=== PATIENT | male | born 1945 | race Caucasian/White ===

== ENCOUNTER → 2020-07-16 15:52 | Outpatient (BNVA) | payer MEDICARE, SELFPAY | PROVIDERS: PCP Family Medicine; Visit Provider Family Medicine | DX: I73.9 Peripheral vascular disease, unspecified (principal); Z51.81 Encounter for therapeutic drug level monitoring; Z79.01 Long term (current) use of anticoagulants | CPT/HCPCS: 85610; 99211 ==

== ENCOUNTER → 2020-07-23 15:21 | Outpatient (BNVA) | payer MEDICARE, SELFPAY | PROVIDERS: PCP Family Medicine; Visit Provider Internal Medicine | DX: I73.9 Peripheral vascular disease, unspecified (principal); Z51.81 Encounter for therapeutic drug level monitoring; Z79.01 Long term (current) use of anticoagulants | CPT/HCPCS: 85610 ==

== ENCOUNTER → 2020-09-17 15:40 | Outpatient (BNVA) | payer MEDICARE, SELFPAY | PROVIDERS: PCP Family Medicine; Visit Provider Internal Medicine | DX: I73.9 Peripheral vascular disease, unspecified (principal); Z51.81 Encounter for therapeutic drug level monitoring; Z79.01 Long term (current) use of anticoagulants | CPT/HCPCS: 85610; 99211 ==

== ENCOUNTER → 2020-09-24 15:30 | Outpatient (BNVA) | payer MEDICARE, SELFPAY | PROVIDERS: PCP Family Medicine; Visit Provider Internal Medicine | DX: I73.9 Peripheral vascular disease, unspecified (principal); Z51.81 Encounter for therapeutic drug level monitoring; Z79.01 Long term (current) use of anticoagulants | CPT/HCPCS: 85610; 99211 ==

== ENCOUNTER → 2020-09-27 14:37 | Outpatient (BNVA) | payer MEDICARE, SELFPAY | PROVIDERS: PCP Family Medicine; Visit Provider Internal Medicine | DX: I73.9 Peripheral vascular disease, unspecified (principal); Z51.81 Encounter for therapeutic drug level monitoring; Z79.01 Long term (current) use of anticoagulants | CPT/HCPCS: 85610; 99211 ==

== ENCOUNTER → 2020-09-30 14:13 | Outpatient (BNVA) | payer MEDICARE, SELFPAY | PROVIDERS: PCP Family Medicine; Visit Provider Internal Medicine | DX: I73.9 Peripheral vascular disease, unspecified (principal); Z79.01 Long term (current) use of anticoagulants; Z51.81 Encounter for therapeutic drug level monitoring | CPT/HCPCS: 85610; 99211 ==

== ENCOUNTER → 2020-10-05 14:17 | Outpatient (BNVA) | payer MEDICARE, SELFPAY | PROVIDERS: PCP Family Medicine; Visit Provider Internal Medicine | DX: I73.9 Peripheral vascular disease, unspecified (principal); Z51.81 Encounter for therapeutic drug level monitoring; Z79.01 Long term (current) use of anticoagulants | CPT/HCPCS: 85610; 99211 ==

== ENCOUNTER → 2020-10-14 14:41 | Outpatient (BNVA) | payer MEDICARE, SELFPAY | PROVIDERS: PCP Family Medicine; Visit Provider Internal Medicine | DX: I73.9 Peripheral vascular disease, unspecified (principal); Z79.01 Long term (current) use of anticoagulants; Z51.81 Encounter for therapeutic drug level monitoring | CPT/HCPCS: 85610; 99211 ==

== ENCOUNTER 2020-11-02 10:19 | Outpatient (REF) | payer MEDICARE, SELFPAY ==
[2020-11-02 11:40] LABS: Glucose Urine UA 250 MG/DL (NEG); Leukocyte Esterase Urine NEG (NEG); Nitrite Urine NEG (NEG); Specific Gravity - Urine 1.015 (1.005-1.025); Urine Blood NEG (NEG); Urine Ketones NEG (NEG); Urine Protein 1+ MG/DL (NEG-TRACE)
[2020-11-02 11:55] LABS: Appearance Urine HAZY; Color Urine YELLOW
[2020-11-02 12:35] LABS: Mucus Urine 1+ /LPF; Renal Epithelial Cells Urine 1+ /LPF; Squamous Epithelial Cell Urine 1+ /LPF
== END 2020-11-02 10:20 | disposition home or self-care (01) ==
LOC: HO.LNP 10:19
PROVIDERS: Visit Provider Family Medicine
DX: E11.65 Type 2 diabetes mellitus with hyperglycemia (principal)
CPT/HCPCS: 81001

== ENCOUNTER → 2020-11-05 14:21 | Outpatient (BNVA) | payer MEDICARE, SELFPAY | PROVIDERS: PCP Family Medicine; Visit Provider Internal Medicine | DX: I73.9 Peripheral vascular disease, unspecified (principal); Z51.81 Encounter for therapeutic drug level monitoring; Z79.01 Long term (current) use of anticoagulants | CPT/HCPCS: 85610; 99211 ==

== ENCOUNTER → 2020-11-26 13:44 | Outpatient (BNVA) | payer MEDICARE, SELFPAY | PROVIDERS: PCP Family Medicine; Visit Provider Internal Medicine | DX: I73.9 Peripheral vascular disease, unspecified (principal); Z51.81 Encounter for therapeutic drug level monitoring; Z79.01 Long term (current) use of anticoagulants | CPT/HCPCS: 85610; 99211 ==

== ENCOUNTER 2020-12-09 13:42 | Emergency (ER) | payer MEDICARE, SELFPAY ==
[2020-12-09] VITALS (15 sets, daily range): BP systolic 115–167; BP diastolic 17–72; PULSE 83–94; RESP 16–24; TEMP 36.5–37.1; O2SAT 97–98; BMI 28.1
--- NOTE | 2020-12-09 13:57 | ECG_ITS ---
Test Reason : WEAKNESS Blood Pressure : / mmHG Vent. Rate : 077 BPM Atrial Rate : 267 BPM P-R Int : 000 ms QRS Dur : 092 ms QT Int : 438 ms P-R-T Axes : 000 030 219 degrees QTc Int : [address] & T wave abnormality, consider inferolateral ischemia Prolonged QT Abnormal ECG When compared with ECG of 22-AUG-2011 09:07, Significant changes have occurred Referred By: Gloria Degroot Electronically Signed By:RAJAN NORTON
--- NOTE | 2020-12-09 13:58 | ED.GIBLEED ---
HPI - GI Bleed General Chief complaint: Weakness Stated complaint: hemoglobin blood level 6.2, Time Seen by Provider: 12/09/20 13:55 Source: patient and family (daughter is electrical technician and interpreted for us) Mode of arrival: ambulatory Limitations: no limitations History of Present Illness HPI Narrative: 75 yo male with renal disease on peritoneal disease at home, GIB ?AVM, s/p synthetic fem pop bypass on coumadin, had H/H checked yesterday it is around 6 - dropped from usual 10, c/o feeling fatigued and some ACOSTA recently, no black or bloody stools reported at home MD complaint: other (low H/H) Onset (ago): day(s) (1) Pain Consistency: constant Severity: moderate Relieving factors: movement Exacerbating factors: none Context: history of GI bleed and anticoagulant use Associated symptoms: weakness Treatments Prior to Arrival: none Related Data Home Medications Medication Instructions Recorded Confirmed atorvastatin 40 mg tablet 40 mg PO BEDTIME 09/24/20 12/09/20 blood sugar diagnostic #10 ea 09/24/20 10/05/20 carvedilol 3.125 mg tablet 3.125 mg PO BID 09/24/20 12/09/20 docusate sodium 100 mg capsule 100 mg PO BID PRN 09/24/20 12/09/20 ergocalciferol (vitamin D2) 1,250 1,250 mcg PO YOUNG@1000 09/24/20 12/09/20 mcg (50,000 unit) capsule fluticasone propionate 50 1 spray INTRANASAL DAILY PRN 09/24/20 12/09/20 mcg/actuation nasal spray,suspension glucagon 3 mg/actuation nasal spray 3 mg INTRANASAL DAILY PRN 09/24/20 12/09/20 hydralazine 50 mg tablet 50 mg PO BID 09/24/20 12/09/20 insulin aspart U-100 100 unit/mL 4 - 6 unit SUBCUT DAILY 09/24/20 12/09/20 (3 mL) subcutaneous pen insulin glargine 100 unit/mL (3 13 unit SUBCUT DAILY 09/24/20 12/09/20 mL) subcutaneous pen levothyroxine 75 mcg tablet 75 mcg PO DAILY 09/24/20 12/09/20 losartan 100 mg tablet 100 mg PO DAILY 09/24/20 12/09/20 magnesium oxide 400 mg (241.3 mg 400 mg PO TID 09/24/20 12/09/20 magnesium) tablet melatonin 1 mg tablet 1 mg PO BEDTIME 09/24/20 12/09/20 omeprazole 20 mg capsule,delayed 20 mg PO DAILY 09/24/20 12/09/20 release pen needle, diabetic 32 gauge x #50 ea 09/24/20 10/05/20 5/32 potassium chloride 10 mEq 10 meq PO DAILY 09/24/20 12/09/20 capsule,extended release ketoconazole 2 % shampoo 1 appl TOPICAL 2XW PRN 10/05/20 12/09/20 vitamin B complex-vitamin C-folic 1 tab PO DAILY 10/05/20 12/09/20 acid 0.8 mg tablet B complex-vitamin C-folic acid 1 tab PO DAILY 12/09/20 12/09/20 [Dialyvite 800] amlodipine 10 mg PO DAILY 12/09/20 12/09/20 ferric citrate [Auryxia] 210 mg PO DAILY 12/09/20 12/09/20 ketorolac 1 drp OPHTHALMIC (EYE) TID 12/09/20 12/09/20 prednisolone acetate 1 drp OPHTHALMIC-LEFT QID 12/09/20 12/09/20 warfarin 3 mg PO TUFR@1800 12/09/20 12/09/20 warfarin 4.5 mg PO SUMOWETHSA@1800 12/09/20 12/09/20 Allergies Allergy/AdvReac Type Severity Reaction Status Date / Time oxycodone [OXYCODONE] Allergy Intermediate RASH Verified 11/26/20 14:13 ITCHYNESS, itchy HIVES Review of Systems Review of Systems: Constitutional : No Weight loss, No Fever, No Chills ENT/Mouth : No sore throat, No Rhinorrhea Eyes: No Swelling, No Redness Cardiovascular : No Chest Pain, pos SOB, NoEdema Respiratory : No Cough, No Sputum, No Wheezing Gastrointestinal : no Nausea, no Vomiting, no Diarrhea, no abdominal Pain, No Hematochezia, No Melena Genitourinary : No Dysuria, No Urinary Frequency, No Hematuria, No Urgency Musculoskeletal : No joint pain, No Myalgias, No Joint Swelling Skin : No Skin Lesions, No rash Neuro : pos Weakness, No Numbness, No Dizziness, No Headache Psych : No Anxiety/Panic, No Depression Heme/Lymph: No Bruising, No Lymphadenopathy Endocrine : No Polyuria, No Polydipsia All other systems reviewed and are negative. [facility] Past Medical History Attestation statement: The following information was validated with the patient. Source: old records reviewed and obtained from family Medical History (Updated 12/09/20 @ 14:41 by Gloria Degroot DO) Anemia CHF (congestive heart failure) Diabetes GIB (gastrointestinal bleeding) Hernia Peritoneal dialysis catheter in place Renal failure Surgical History (Updated 12/09/20 @ 14:12 by Gloria Degroot DO) S/P femoral-popliteal bypass surgery Social History Social History (Updated 12/09/20 @ 14:13 by Gloria Degroot DO) Smoking Status: Former smoker Advance Directives: No Advance Directives Information Provided: No Physical Exam Vital Signs: Vital Signs: Last Vital Signs Temp 97.7 F 12/09/20 16:32 Pulse 85 12/09/20 16:32 Resp 18 12/09/20 16:32 BP 120/66 12/09/20 16:32 Pulse Ox 98 12/09/20 13:50 Body Mass Index 28.1 Appearance: Alert. Oriented X3. No acute distress. Eyes: Pupils equal, round and reactive to light. ENT: Pharynx normal. Neck: Normal inspection. Neck supple. CVS: Normal heart rate and rhythm. Pulses normal. Respiratory: No respiratory distress. Breath sounds normal. Abdomen: Soft and nontender. cath site is c/d/i Rectal: black stool noted smells of melena Skin: Skin warm and dry. pale skin color. Normal skin turgor. Extremities: No lower extremity edema. No calf ttp Neuro: Oriented X 3. No motor deficit. No sensory deficit. Course Course Course Narrative: no hx of afib per daughter patient and daughter agree to stay initially hesitant due to COVID but patient just received his second vaccine 2UPRBCs ordered call to nephrology to figure out peritoneal dialysis as well as call to [facility] if patient can stay here FFP and Vit K ordered as well INR 3.5 but daughter notes that this is for fem pop bypass to prevent occlusion - has afib now but no history at this time. nephrology Dr. Duran and both hospital administration recommend transfer to [facility] as we do not have the equipment for peritoneal dialysis, will call [facility] now 411pm discussed with GI fellow at [facility] - agrees transfer is appropriate pending hospitalist call back. signed out to Dr. Mac pending hospitalist call back 5pm MDM - GI Bleed MDM Narrative Medical decision making narrative: 75 yo male with renal disease on peritoneal dialysis, GIB, on coumadin post synthetic fem pop bypass here with increasing fatigue and ACOSTA no reported bloody or black stools at home but stool black on exam today told his hemoglobin was 6 yesterday given his presentation labs, transfusion ordered, IV protonix, plan to admit patient and daughter have mentioned going home after blood but he is high risk given his coumadin use. Lab Data Result diagrams: 12/09/20 14:53 12/09/20 14:53 Labs: Lab Results 12/09/20 12/09/20 12/09/20 Range/Units 14:08 14:53 14:53 WBC 7.0 (4.8-10.8) X10*3/uL RBC 1.68 L (4.60-5.80) X10*6/uL Hgb 5.3 L* (14.0-18.0) g/dl Hct 17.1 L* (42-52) % MCV 101.8 H (80-98) fL MCH 31.5 (27.0-33.0) pg MCHC 31.0 (31.0-36.0) g/dl RDW 15.7 (11.0-16.0) % Plt Count 154 L (160-400) X10*3/uL MPV 10.8 (9.4-12.4) fL Immature Gran % (Auto) 0.4 (0.0-0.4) % Neut % (Auto) 70.8 (45-73) % Lymph % (Auto) 17.9 L (20-40) % Tompkins % (Auto) 8.5 (2-11) % Eos % (Auto) 2.0 (0-4) % Baso % (Auto) 0.4 (0-2) % Lymph # (Auto) 1.3 (1.2-4.9) X10*3/uL Tompkins # (Auto) 0.6 (0.1-1.2) X10*3/uL Eos # (Auto) 0.1 (0.0-0.4) X10*3/uL Baso # (Auto) 0.0 (0.0-0.2) X10*3/uL Abs Immat Gran (auto) 0.03 (0.00-0.03) X10*3/uL Absolute Neuts (auto) 4.9 (2.0-8.3) X10*3/uL Absolute Nucleated RBC 0.000 (0.0-0.012) X10*3/uL Nucleated RBC % (auto) 0.0 (0.0-0.2) /100WBC PT (10.8-13.0) SEC INR (0.9-1.1) APTT (24.1-38.0) SEC Sodium 133 L (135-145) mmol/L Potassium 3.7 (3.3-5.1) mmol/L Chloride 96 (96-108) mmol/L Carbon Dioxide 24 (22-29) mmol/L Anion Gap 17 (12-20) BUN 72 H (9-16) mg/dL Creatinine 9.14 H* (0.5-1.4) mg/dL Estim Creat Clear Calc 7.2 Estimated GFR 6 Random Glucose 189 H (60-115) mg/dL Lactic Acid (0.5-2.0) mmol/L Calcium 8.0 L (8.4-10.2) mg/dL Magnesium 2.4 (1.6-2.6) mg/dL Total Bilirubin 0.7 (0.0-1.0) mg/dL Direct Bilirubin 0.2 (0.0-0.5) mg/dL AST 20 (5-37) U/L ALT 23 (0-40) U/L Alkaline Phosphatase 59 (39-117) U/L Troponin I High Sens (<3.5-35.0) ng/L Total Protein 4.9 L (6.5-8.0) g/dL Albumin 3.0 L (3.5-5.0) g/dL Lipase (8-78) U/L Stool Occult Blood POS (NEG) COVID-19 ([facility]) (Negative) COVID-19 Clin Com Blood Type Antibody Screen Crossmatch 12/09/20 12/09/20 12/09/20 Range/Units 14:53 14:53 14:53 WBC (4.8-10.8) X10*3/uL RBC (4.60-5.80) X10*6/uL Hgb (14.0-18.0) g/dl Hct (42-52) % MCV (80-98) fL MCH (27.0-33.0) pg MCHC (31.0-36.0) g/dl RDW (11.0-16.0) % Plt Count (160-400) X10*3/uL MPV (9.4-12.4) fL Immature Gran % (Auto) (0.0-0.4) % Neut % (Auto) (45-73) % Lymph % (Auto) (20-40) % Tompkins % (Auto) (2-11) % Eos % (Auto) (0-4) % Baso % (Auto) (0-2) % Lymph # (Auto) (1.2-4.9) X10*3/uL Tompkins # (Auto) (0.1-1.2) X10*3/uL Eos # (Auto) (0.0-0.4) X10*3/uL Baso # (Auto) (0.0-0.2) X10*3/uL Abs Immat Gran (auto) (0.00-0.03) X10*3/uL Absolute Neuts (auto) (2.0-8.3) X10*3/uL Absolute Nucleated RBC (0.0-0.012) X10*3/uL Nucleated RBC % (auto) (0.0-0.2) /100WBC PT 41.7 H (10.8-13.0) SEC INR 3.5 H (0.9-1.1) APTT 47.0 H (24.1-38.0) SEC Sodium (135-145) mmol/L Potassium (3.3-5.1) mmol/L Chloride (96-108) mmol/L Carbon Dioxide (22-29) mmol/L Anion Gap (12-20) BUN (9-16) mg/dL Creatinine (0.5-1.4) mg/dL Estim Creat Clear Calc Estimated GFR Random Glucose (60-115) mg/dL Lactic Acid 1.9 (0.5-2.0) mmol/L Calcium (8.4-10.2) mg/dL Magnesium (1.6-2.6) mg/dL Total Bilirubin (0.0-1.0) mg/dL Direct Bilirubin (0.0-0.5) mg/dL AST (5-37) U/L ALT (0-40) U/L Alkaline Phosphatase (39-117) U/L Troponin I High Sens 43.1 H (<3.5-35.0) ng/L Total Protein (6.5-8.0) g/dL Albumin (3.5-5.0) g/dL Lipase (8-78) U/L Stool Occult Blood (NEG) COVID-19 ([facility]) (Negative) COVID-19 Clin Com Blood Type Antibody Screen Crossmatch 12/09/20 12/09/20 12/09/20 Range/Units 14:53 14:53 14:53 WBC (4.8-10.8) X10*3/uL RBC (4.60-5.80) X10*6/uL Hgb (14.0-18.0) g/dl Hct (42-52) % MCV (80-98) fL MCH (27.0-33.0) pg MCHC (31.0-36.0) g/dl RDW (11.0-16.0) % Plt Count (160-400) X10*3/uL MPV (9.4-12.4) fL Immature Gran % (Auto) (0.0-0.4) % Neut % (Auto) (45-73) % Lymph % (Auto) (20-40) % Tompkins % (Auto) (2-11) % Eos % (Auto) (0-4) % Baso % (Auto) (0-2) % Lymph # (Auto) (1.2-4.9) X10*3/uL Tompkins # (Auto) (0.1-1.2) X10*3/uL Eos # (Auto) (0.0-0.4) X10*3/uL Baso # (Auto) (0.0-0.2) X10*3/uL Abs Immat Gran (auto) (0.00-0.03) X10*3/uL Absolute Neuts (auto) (2.0-8.3) X10*3/uL Absolute Nucleated RBC (0.0-0.012) X10*3/uL Nucleated RBC % (auto) (0.0-0.2) /100WBC PT (10.8-13.0) SEC INR (0.9-1.1) APTT (24.1-38.0) SEC Sodium (135-145) mmol/L Potassium (3.3-5.1) mmol/L Chloride (96-108) mmol/L Carbon Dioxide (22-29) mmol/L Anion Gap (12-20) BUN (9-16) mg/dL Creatinine (0.5-1.4) mg/dL Estim Creat Clear Calc Estimated GFR Random Glucose (60-115) mg/dL Lactic Acid (0.5-2.0) mmol/L Calcium (8.4-10.2) mg/dL Magnesium (1.6-2.6) mg/dL Total Bilirubin (0.0-1.0) mg/dL Direct Bilirubin (0.0-0.5) mg/dL AST (5-37) U/L ALT (0-40) U/L Alkaline Phosphatase (39-117) U/L Troponin I High Sens (<3.5-35.0) ng/L Total Protein (6.5-8.0) g/dL Albumin (3.5-5.0) g/dL Lipase 72 (8-78) U/L Stool Occult Blood (NEG) COVID-19 ([facility]) Negative (Negative) COVID-19 Clin Com See Note Blood Type AB Positive Antibody Screen NEGATIVE Crossmatch See Detail ECG Data Attestation: I personally reviewed and interpreted this ECG as follows: ECG interpretation date: 12/09/20 ECG interpretation time: 14:30 Interpretation: Rate: 80 Rhythm: afib [place]: normal Normal QRS complex. ST T wave : ST depression V3-V6 slight, no JACKIE, inverted inf leads qTC: normal prior studies: changed from 2011 The study has been interpreted contemporaneously by me. . Critical Care Time Critical Care Time Critical Care Time: Yes Total Critical Care Time: 60 Attestation: medical consults, transfusions, transfer to tertiary center I attest to this time spent taking care of the patient Discharge Plan Discharge Clinical Impression: Current use of anticoagulant therapy Anemia Qualifiers: Anemia type: other cause Other causes of anemia: acute posthemorrhagic Qualified Code(s): D62 - Acute posthemorrhagic anemia GIB (gastrointestinal bleeding) Qualifiers: GI bleed type/associated pathology: melena Qualified Code(s): K92.1 - Melena A-fib Qualifiers: Atrial fibrillation type: unspecified Qualified Code(s): I48.91 - Unspecified atrial fibrillation Patient Disposition: [facility] Transfer Details: [facility] Prescriptions: No Action ketorolac 0.5 % Drops 1 drp OPHTHALMIC (EYE) TID RF: 0 prednisolone acetate 1 % Drops,Suspension 1 drp ophthalmic-Left QID RF: 0 amlodipine 10 mg Tablet 10 mg PO DAILY RF: 0 Dialyvite 800 800 mcg Tablet,Chewable 1 tab PO DAILY RF: 0 Auryxia 210 mg iron Tablet 210 mg PO DAILY RF: 0 warfarin 3 mg Tablet 4.5 mg PO SUMOWETHSA@1800 RF: 0 warfarin 3 mg tablet 3 mg PO TUFR@1800 RF: 0 Baqsimi 3 mg/actuation spray,non-aerosol 3 mg intranasal DAILY PRN (Reason: Hypoglycemia) RF: 0 melatonin 1 mg tablet 1 mg PO BEDTIME RF: 0 levothyroxine 75 mcg tablet 75 mcg PO DAILY RF: 0 ergocalciferol (vitamin D2) 1,250 mcg (50,000 unit) capsule 1,250 mcg PO YOUNG@1000 RF: 0 hydralazine 50 mg tablet 50 mg PO BID RF: 0 magnesium oxide 400 mg (241.3 mg magnesium) tablet 400 mg PO TID RF: 0 (DME) pen needle, diabetic 32 gauge x 5/32 needle See Rx Instructions ea subcut .MEDSUPPLY Qty: 50 RF: 0 Lantus Solostar U-100 Insulin 100 unit/mL (3 mL) insulin pen 13 unit subcut DAILY RF: 0 insulin aspart U-100 100 unit/mL (3 mL) insulin pen 4 - 6 unit subcut DAILY RF: 0 fluticasone propionate 50 mcg/actuation spray,suspension 1 spray intranasal DAILY PRN (Reason: Allergy Symptoms) RF: 0 losartan 100 mg tablet 100 mg PO DAILY RF: 0 carvedilol 3.125 mg tablet 3.125 mg PO BID RF: 0 docusate sodium 100 mg capsule 100 mg PO BID PRN (Reason: Constipation) RF: 0 omeprazole 20 mg capsule,delayed release(DR/EC) 20 mg PO DAILY RF: 0 (DME) FreeStyle Lite Strips Strip See Rx Instructions ea Not Applicable .MEDSUPPLY Qty: 10 RF: 0 potassium chloride 10 mEq capsule, extended release 10 meq PO DAILY RF: 0 atorvastatin 40 mg tablet 40 mg PO BEDTIME RF: 0 Dialyvite 800 0.8 mg tablet 1 tab PO DAILY RF: 0 ketoconazole 2 % shampoo 1 appl topical 2XW PRN (Reason: Itching) RF: 0
[2020-12-09 14:12] LABS: OBS Int Ctl Valid YES; OBS1 POS (NEG)
[2020-12-09 15:00] LABS: MANUAL DIFF FLAG NO
--- NOTE | 2020-12-09 15:02 | PC.NURSE ---
IV EST 20 G L AC.
[2020-12-09] MEDS: Pantoprazole Sodium 40 MG/10 ML VIAL IVPUSH (15:04)
[2020-12-09 15:08] LABS: Basophils Percent Auto 0.4 % (0-2); Eosinophils Absolute Auto 0.1 X10*3/uL (0.0-0.4); Imm Gran Abs Auto 0.03 X10*3/uL (0.00-0.03); Imm Gran Pct Auto 0.4 % (0.0-0.4); Lymphocytes Absolute Auto 1.3 X10*3/uL (1.2-4.9); Lymphocytes Percent Auto 17.9 % (20-40); Mean Corpuscular Hemoglobin 31.5 pg (27.0-33.0); Mean Corpuscular Volume 101.8 fL (80-98); Mean Platelet Volume 10.8 fL (9.4-12.4); Monocytes Absolute Auto 0.6 X10*3/uL (0.1-1.2); Monocytes Percent Auto 8.5 % (2-11); Neutrophils Absolute Auto 4.9 X10*3/uL (2.0-8.3); Neutrophils Percent Auto 70.8 % (45-73); Platelet Count 154 X10*3/uL (160-400); Red Blood Count 1.68 X10*6/uL (4.60-5.80); Red Cell Distribution Width 15.7 % (11.0-16.0)
[2020-12-09 15:10] LABS: INTERNATIONAL NORM RATIO 3.5 (0.9-1.1); Prothrombin Time 41.7 SEC (10.8-13.0)
[2020-12-09 15:13] LABS: Hemoglobin 5.3 g/dl (14.0-18.0)
[2020-12-09 15:14] LABS: Hematocrit 17.1 % (42-52)
[2020-12-09] MEDS: Pantoprazole Sodium 80 MG in 0.9 % Sodium Chloride 80 ML 10 MG IV (15:15)
[2020-12-09 15:21] LABS: COVID-19 Test Negative (Negative)
[2020-12-09 15:29] LABS: Lactic Acid 1.9 mmol/L (0.5-2.0)
[2020-12-09 15:33] LABS: Lipase 72 U/L (8-78)
[2020-12-09 15:36] LABS: Alanine Aminotransferase 23 U/L (0-40); Alkaline Phosphatase 59 U/L (39-117); Anion Gap 17 (12-20); Aspartate Amino Transferase 20 U/L (5-37); Bilirubin Direct 0.2 mg/dL (0.0-0.5); Bilirubin Total 0.7 mg/dL (0.0-1.0); Blood Urea Nitrogen 72 mg/dL (9-16); Carbon Dioxide 24 mmol/L (22-29); Chloride 96 mmol/L (96-108); Creatinine Clr Calc Pharmacy 7.2; Estimated Glomerular Filt Rate 6; Glucose Random 189 mg/dL (60-115); Magnesium 2.4 mg/dL (1.6-2.6); Potassium 3.7 mmol/L (3.3-5.1); Sodium 133 mmol/L (135-145); Total Protein 4.9 g/dL (6.5-8.0)
[2020-12-09 15:43] LABS: Troponin-I High Sensitivity 43.1 ng/L (<3.5-35.0)
--- NOTE | 2020-12-09 16:40 | PC.NURSE ---
PT TOLERATING BLOOD TRANSFUSION WELL. ATTEMPTING SECOND PERIPHERAL IV. PT DIFFICULT STICK. LS CLEAR. BPS REAMIN WNL. DENIES ANY PAIN AT THIS TIME.
[2020-12-09] MEDS: Phytonadione (Vit K1) 10 MG in 0.9 % Sodium Chloride 50 ML 51 MG IV (17:39)
--- NOTE | 2020-12-09 17:39 | PC.NURSE ---
REGULATORY CONSULTANT RIN IN TO PLACE EJ ALL ATTEMPTS TO PLACE IV FAILED BY NUMEROUS RNS
--- NOTE | 2020-12-09 18:17 | PC.NURSE ---
2ND UNIT OF RBCS HUNG. AWAITING TRANSPORT TO [facility]
--- NOTE | 2020-12-09 18:21 | PC.NURSE ---
PROTONIX HELD AT 1630 FOR RBC INFUSION. VIT K NOW HANGING. PROTONIX TO CONTINUE AFTER VIT K INFUSION
--- NOTE | 2020-12-09 20:05 | PC.NURSE ---
protonix gtt resumed
--- NOTE | 2020-12-09 20:40 | PC.NURSE ---
Patient transfered to [facility] via [facility]. Report given by MELBA Hernandez.
--- NOTE | 2020-12-09 21:54 | PC.NURSE ---
REPORT GIVEN TO [facility] RN
== END 2020-12-09 20:45 | disposition short-term general hospital (02) ==
PROVIDERS: Emergency Provider Emergency Medicine; PCP Family Medicine
DX: R53.1 Weakness (principal); D62 Acute posthemorrhagic anemia; K92.1 Melena; I48.91 Unspecified atrial fibrillation; Z20.822 Contact with and (suspected) exposure to COVID-19; E11.22 Type 2 diabetes mellitus with diabetic chronic kidney disease; I13.2 Hypertensive heart and chronic kidney disease with heart failure and with stage 5 chronic kidney disease, or end stage renal disease; I50.9 Heart failure, unspecified; N18.6 End stage renal disease; Z99.2 Dependence on renal dialysis; Z79.4 Long term (current) use of insulin; Z95.828 Presence of other vascular implants and grafts; Z79.01 Long term (current) use of anticoagulants
CPT/HCPCS: 36415; 36430; 80048; 80076; 82272; 83605; 83690; 83735; 84484; 85025; 85060; 85610; 85730; 86850; 86900; 86920; 86923; 86927; 87635; 93005; 96365; 96366; 96368; 96375; 99285; 99291; J3430; P9016; P9017

== ENCOUNTER 2021-02-01 11:28 | Outpatient (REF) | payer MEDICARE, SELFPAY ==
[2021-02-02 13:21] LABS: Transglutaminase Ab IgG 1 U/mL; Transglutaminase IgA 1 U/mL
[2021-02-04 18:47] LABS: Histamine Plasma <1.5 ng/mL (< OR = 1.8)
== END 2021-02-01 11:29 | disposition home or self-care (01) ==
LOC: HO.LAB 11:28
PROVIDERS: PCP Family Medicine; Visit Provider Internal Medicine Gastroenterology
DX: R10.33 Periumbilical pain (principal); K92.2 Gastrointestinal hemorrhage, unspecified; R19.7 Diarrhea, unspecified; G89.29 Other chronic pain
CPT/HCPCS: 36415; 83088; 83516; 84443; 99212

== ENCOUNTER 2021-02-05 07:21 | Outpatient (REF) | payer MEDICARE, SELFPAY ==
[2021-02-09 06:12] LABS: Fecal Fat Qualitative Abnormal (Normal)
[2021-02-14 23:42] LABS: Pancreatic Elastase-1 434 mcg/g
== END 2021-02-05 07:22 | disposition home or self-care (01) ==
LOC: HO.LNP 07:21
PROVIDERS: Visit Provider Internal Medicine Gastroenterology
DX: K92.2 Gastrointestinal hemorrhage, unspecified (principal); R19.7 Diarrhea, unspecified
CPT/HCPCS: 82656; 82705; 87045; 87046; 87324; 87329; 87449

== ENCOUNTER 2021-03-16 14:37 | Outpatient (REF) | payer MEDICARE, SELFPAY ==
--- NOTE | ~2021-03-16 | XR_ITS ---
EXAMINATION: XR ABDOMEN KUB CLINICAL INDICATION: Gastrointestinal hemorrhage. COMPARISON: None TECHNIQUE: AP views of the abdomen. FINDINGS: Nonobstructive bowel gas pattern. Dftn-aq-swzchorj stool throughout the colon. Drain coiled overlying the left pelvis. Atherosclerotic calcifications. No acute osseous abnormality. XR/XR KUB IMPRESSION: Nonobstructive bowel gas pattern. Msby-oq-gbvatvax stool throughout the colon. Drain coiled overlying the left pelvis.
== END 2021-03-16 14:38 | disposition home or self-care (01) ==
LOC: HO.XRAY 14:37
PROVIDERS: PCP Family Medicine; Visit Provider Internal Medicine Gastroenterology
DX: K92.2 Gastrointestinal hemorrhage, unspecified (principal); R19.7 Diarrhea, unspecified
CPT/HCPCS: 74018

== ENCOUNTER → 2021-03-24 08:40 | Outpatient (BNVA) | payer MEDICARE, SELFPAY | PROVIDERS: PCP Family Medicine; Referring Provider Family Medicine; Visit Provider Internal Medicine Gastroenterology | DX: K29.80 Duodenitis without bleeding (principal) | CPT/HCPCS: 91110 ==

== ENCOUNTER 2021-03-28 15:44 | Outpatient (REF) | payer MEDICARE, SELFPAY | END 2021-03-28 15:45 | disposition home or self-care (01) | LOC: HO.LNP 15:44 | PROVIDERS: PCP Family Medicine; Referring Provider Family Medicine; Visit Provider Surgery | DX: L72.9 Follicular cyst of the skin and subcutaneous tissue, unspecified (principal) | CPT/HCPCS: 11422; 88304; 99202 ==

== ENCOUNTER 2021-03-29 08:13 | Outpatient (REF) | payer MEDICARE, SELFPAY | END 2021-03-29 08:14 | disposition home or self-care (01) | LOC: HO.LAB 08:13 | PROVIDERS: Visit Provider Surgery | DX: Z13.89 Encounter for screening for other disorder (principal) ==

== ENCOUNTER → 2021-04-01 13:39 | Outpatient (BNVA) | payer MEDICARE, SELFPAY | PROVIDERS: PCP Family Medicine | DX: Z48.00 Encounter for change or removal of nonsurgical wound dressing (principal) | CPT/HCPCS: 99211 ==

== ENCOUNTER → 2021-04-07 16:08 | Outpatient (BNVA) | payer MEDICARE, SELFPAY | PROVIDERS: PCP Family Medicine; Referring Provider Family Medicine; Visit Provider Surgery | DX: Z48.817 Encounter for surgical aftercare following surgery on the skin and subcutaneous tissue (principal); Z87.2 Personal history of diseases of the skin and subcutaneous tissue | CPT/HCPCS: 99212 ==

== ENCOUNTER 2021-04-08 14:59 | Outpatient (REF) | payer MEDICARE, SELFPAY ==
--- NOTE | 2021-04-13 08:14 | MHC.AU.HFU ---
Hearing Instrument Follow-Up- Binaural Date of Visit: 04/08/21 Right Ear: Semiconductor Wafers Marker: Phonak Model: Audeo M50-R Serial Number: [id number] Repair Warranty: 04/16/2022 Loss and Damage Warranty: 04/16/2022 Battery Size: Rechargeable Color: Sand Beige Type of Dome: Medium Open Dome Type of Wax Guard: CeruShield Dispensed By: [facility] Date of Fittin02/27/2019 Left Ear: Semiconductor Wafers Marker: Phonak Model: Audeo M50-R Serial Number: [id number] Repair Warranty: 04/16/2022 Loss and Damage Warranty: 04/26/2022 Battery Size: Rechargeable Color: Sand Beige Type of Dome: Medium Power Dome Type of Wax Guard: CeruStop Dispensed By: [facility] Date of Fittin02/27/2019 Follow-Up Summary: Patient arrived as a walk-in, reporting both instruments were not working. Both receivers were blocked with cerumen. Cleaned receivers, replaced domes and wax guards. Vacuumed microphones. Hearing aids are amplifying clearly after maintenance. Recommendations: Hearing instrument follow-up or maintenance as needed. Please contact our clinic with any questions or concerns. Diagnosis Code(s): Primary Diagnosis: H90.3 Bilateral Sensorineural Hearing Loss Signature: Provider: Anjali Neil, [facility]
== END 2021-04-08 15:00 | disposition home or self-care (01) ==
LOC: HO.HAP 14:59
PROVIDERS: Visit Provider Family Medicine
DX: Z46.1 Encounter for fitting and adjustment of hearing aid (principal); H90.3 Sensorineural hearing loss, bilateral
CPT/HCPCS: 92593

== ENCOUNTER 2021-07-15 13:00 | Outpatient (REF) | payer MEDICARE, SELFPAY | END 2021-07-15 13:01 | disposition home or self-care (01) | LOC: HO.MDS 13:00 | PROVIDERS: Visit Provider Internal Medicine Nephrology | DX: D64.9 Anemia, unspecified (principal) | CPT/HCPCS: 36430; 86850; 86900; 86901; 86923; P9016 ==

== ENCOUNTER → 2021-09-15 10:06 | Outpatient (BNVA) | payer MEDICARE, SELFPAY | PROVIDERS: PCP Family Medicine; Visit Provider Surgery Vascular Surgery | DX: E11.621 Type 2 diabetes mellitus with foot ulcer (principal); L97.519 Non-pressure chronic ulcer of other part of right foot with unspecified severity; E11.51 Type 2 diabetes mellitus with diabetic peripheral angiopathy without gangrene; Z89.421 Acquired absence of other right toe(s) | CPT/HCPCS: 99202 ==

== ENCOUNTER 2021-09-21 12:45 | Outpatient (RCR) | payer MEDICARE, SELFPAY ==
--- NOTE | ~2021-09-21 | XR_ITS ---
EXAMINATION: XR FOOT, RIGHT CLINICAL INFORMATION: Nonhealing wound COMPARISON: None TECHNIQUE: AP, lateral, and oblique views of the right foot. FINDINGS: Postsurgical changes of amputation at the level of the distal fourth and fifth metatarsal shaft. Lucency projected over the soft tissues distal to this, may reflect skin ulceration. There is mild cortical irregularity of the amputation margin of the fifth metatarsal. Subtle irregularity of the fourth metatarsal amputation margin on one of the views. Osteomyelitis cannot be excluded. Amputation of the second metatarsal at the level of the distal shaft without evidence of definite osteomyelitis involving the additional margin. No additional areas of definite osteomyelitis identified. Bones are osteopenic. Mild first MTP arthritis. Vascular calcification is noted. XR/XR foot RT 2V IMPRESSION: Amputation at the level of the distal fifth metatarsal shaft, with osseous findings of the amputation margin raising the possibility of osteomyelitis. Further evaluation with MRI without and with contrast as clinically warranted. Question soft tissue ulceration in the distal lateral soft tissues. Clinically correlate. Fourth metatarsal amputation at the level of the distal shaft. Equivocal subtle cortical irregularity of the amputation margin. The report will be called to the ordering clinician by a [place] [facility] Physician Bioinformatics Programmer.
== END 2021-10-04 11:00 | disposition home or self-care (01) ==
LOC: HO.WCC 12:45
PROVIDERS: Visit Provider Surgery
DX: E10.621 Type 1 diabetes mellitus with foot ulcer (principal); E10.51 Type 1 diabetes mellitus with diabetic peripheral angiopathy without gangrene; L97.512 Non-pressure chronic ulcer of other part of right foot with fat layer exposed; T87.89 Other complications of amputation stump; E10.22 Type 1 diabetes mellitus with diabetic chronic kidney disease; I12.0 Hypertensive chronic kidney disease with stage 5 chronic kidney disease or end stage renal disease; N18.6 End stage renal disease; Z79.4 Long term (current) use of insulin; Z89.421 Acquired absence of other right toe(s); Z79.01 Long term (current) use of anticoagulants; Z87.891 Personal history of nicotine dependence; Z99.2 Dependence on renal dialysis
CPT/HCPCS: 11042; 73620

== ENCOUNTER → 2021-11-07 13:01 | Outpatient (BNVA) | payer MEDICARE, SELFPAY | PROVIDERS: PCP Family Medicine; Visit Provider Internal Medicine Gastroenterology | DX: R19.7 Diarrhea, unspecified (principal) | CPT/HCPCS: Q3014 ==

== ENCOUNTER 2022-10-03 17:41 | Emergency (ER) | payer MEDICARE, SELFPAY ==
[2022-10-03 17:53] VITALS: BP 106/43; PULSE 86; RESP 18; TEMP 36.9; O2SAT 99; BMI 25.1
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
[2022-10-03] MEDS: Bacitracin Oint 14 GM TUBE 1 APPL TOPICAL (18:20)
--- NOTE | 2022-10-03 18:26 | PC.NURSE ---
abrasions on left knee cleansed with NS, patted dry, followed by bacitracin, non stick dressing kerlix and tape
== END 2022-10-03 18:57 | disposition home or self-care (01) ==
PROVIDERS: Emergency Provider Internal Medicine; PCP Family Medicine
DX: L03.115 Cellulitis of right lower limb (principal); Z79.899 Other long term (current) drug therapy
CPT/HCPCS: 99282; 99283

== ENCOUNTER 2022-11-30 12:41 | Emergency (ER) | payer MEDICARE, SELFPAY ==
--- NOTE | 2022-11-30 12:50 | ECG_ITS ---
Test Reason : DIZZY Blood Pressure : / mmHG Vent. Rate : 074 BPM Atrial Rate : 000 BPM P-R Int : 000 ms QRS Dur : 154 ms QT Int : 448 ms P-R-T Axes : 000 -42 165 degrees QTc Int : 497 ms Atrial fibrillation Left axis deviation Non-specific intra-ventricular conduction block Abnormal ECG When compared with ECG of 09-DEC-2020 14:24, QRS duration wider Referred By: Generic ED Physician Electronically Signed By:RAJAN NORTON
--- NOTE | 2022-11-30 13:24 | ED_ITS ---
HPI - Dizziness General Chief Complaint: General Medical <Edwina Pérez CNP - Last Filed: 11/30/22 13:38> Stated Complaint: dizzy <Edwina Pérez CNP - Last Filed: 11/30/22 13:38> Time Seen by Provider: 11/30/22 14:04 <Edwina Pérez CNP - Last Filed: 11/30/22 13:38> Source: patient, family (daughter) and head of digital (daughter interpreting khmer) <SHAN Mccoy - Last Filed: 12/01/22 13:27> Mode of arrival: ambulatory <SHAN Mccoy - Last Filed: 12/01/22 13:27> Limitations: language barrier <SHAN Mccoy Last Filed: 12/01/22 13:27> History of Present Illness HPI Narrative: Patient is a 77 year old assigned male at with a history of kidney failure, eliquis use, and GI bleeding presenting to the emergency department today with dizziness and weakness. Patient's daughter states that the patient d oes nightly peritoneal dialysis. Patient's daughter states that the patient had a large, black, bowel movement 3 days ago and they attempted to hold his eliquis for 1 day but he continues to feel dizzy. Patient's daughter states that the last time this happened, the patient requires a blood transfusion. Patient denies any lightheadedness, abdominal pain, nausea, vomiting, fever, chills, blurry vision, double vision, loss of vision, chest pain, difficulty breathing, shortness of breath, back pain, night sweats, pain with urination, increased urinary frequency, increased urinary urgency, syncope or a near syncopal episode, recent trauma or falls, bowel incontinence, bladder incontinence, bowel retention, bladder retention, or any other complaints at this time. <SHAN Mccoy - Last Filed: 12/01/22 13:27> MD elicited complaint: dizziness and lightheadedness <SHAN Mccoy - Last Filed: 12/01/22 13:27> Pertinent past history: GI bleed <SHAN Mccoy Last Filed: 12/01/22 13:27> Onset (ago): day(s) <SHAN Mccoy Last Filed: 12/01/22 13:27> Severity: mild <SHAN Mccoy - Last Filed: 12/01/22 13:27> Description: lightheadedness <SHAN Mccoy - Last Filed: 12/01/22 13:27> History of similar symptoms: Yes <SHAN Mccoy - Last Filed: 12/01/22 13:27> Exacerbating factors: nothing <SHAN Mccoy - Last Filed: 12/01/22 13:27> Relieving factors: nothing <SHAN Mccoy - Last Filed: 12/01/22 13:27> Associated symptoms: denies other symptoms <SHAN Mccoy - Last Filed: 12/01/22 13:27> Related Data Home Medications: Home Medications Medication Instructions Recorded Confirmed atorvastatin 40 mg tablet 40 mg PO BEDTIME 09/24/20 04/01/21 blood sugar diagnostic #10 ea 09/24/20 04/01/21 carvedilol 3.125 mg tablet 3.125 mg PO BID 09/24/20 04/01/21 docusate sodium 100 mg capsule 100 mg PO BID PRN Constipation 09/24/20 04/01/21 ergocalciferol (vitamin D2) 1,250 1,250 mcg PO YOUNG@1000 09/24/20 04/01/21 mcg (50,000 unit) capsule fluticasone propionate 50 1 spray intranasal DAILY PRN 09/24/20 04/01/21 mcg/actuation nasal Allergy Symptoms spray,suspension glucagon 3 mg/actuation nasal spray 3 mg intranasal DAILY PRN 09/24/20 04/01/21 Hypoglycemia hydralazine 50 mg tablet 50 mg PO BID 09/24/20 04/01/21 insulin aspart U-100 100 unit/mL 4 - 6 unit subcut DAILY 09/24/20 04/01/21 (3 mL) subcutaneous pen insulin glargine 100 unit/mL (3 13 unit subcut DAILY 09/24/20 04/01/21 mL) subcutaneous pen levothyroxine 75 mcg tablet 75 mcg PO DAILY 09/24/20 04/01/21 losartan 100 mg tablet 100 mg PO DAILY 09/24/20 04/01/21 magnesium oxide 400 mg (241.3 mg 400 mg PO TID 09/24/20 04/01/21 magnesium) tablet melatonin 1 mg tablet 1 mg PO BEDTIME 09/24/20 04/01/21 omeprazole 20 mg capsule,delayed 20 mg PO DAILY 09/24/20 04/01/21 release pen needle, diabetic 32 gauge x #50 ea 09/24/20 04/01/21 potassium chloride 10 mEq 10 meq PO DAILY 09/24/20 04/01/21 capsule,extended release ketoconazole 2 % shampoo 1 appl topical 2XW PRN Itching 10/05/20 04/01/21 vitamin B complex-vitamin C-folic 1 tab PO DAILY 10/05/20 04/01/21 acid 0.8 mg tablet ketorolac 0.5 % eye drops 1 drp ophthalmic (eye) TID 12/09/20 04/01/21 prednisolone acetate 1 % eye 1 drp ophthalmic-Left QID 12/09/20 04/01/21 drops,suspension vitamin B complex-vitamin C-folic 1 tab PO DAILY 12/09/20 04/01/21 acid 800 mcg chewable tablet (Dialyvite 800) warfarin 3 mg tablet 3 mg PO TUFR@1800 12/09/20 04/01/21 apixaban 2.5 mg tablet 2.5 mg PO BID 02/01/21 04/01/21 pantoprazole 40 mg tablet,delayed 40 mg PO DAILY 02/01/21 04/01/21 release epoetin beta, methoxy peg 30 30 mcg subcut Q2W 03/28/21 04/01/21 mcg/0.3 mL injection syringe (Mircera) amlodipine 10 mg tablet 5 mg PO DAILY 09/15/21 ferric citrate 210 mg iron tablet 210 mg PO DAILY 09/15/21 (Auryxia) Previous Rx's Medication Instructions Recorded bisacodyl 5 mg tablet,delayed 10 mg PO ONCE Bowel Preparation 1 03/02/21 release (Dulcolax (bisacodyl)) day #2 tabs polyethylene glycol 3350 17 238 g PO ONCE 1 day #238 grams 03/02/21 gram/dose oral powder (Miralax) colesevelam 3.75 gram oral powder 3.75 g PO DAILY 3 months #90 06/15/21 packet packets cephalexin 500 mg capsule 500 mg PO BID 7 days #14 caps 10/03/22 <Edwina Pérez, [facility] - Last Filed: 11/30/22 13:38> Allergies/Adverse Reactions: Allergies Allergy/AdvReac Type Severity Reaction Status Date / Time oxycodone [OXYCODONE] Allergy Intermediate RASH Verified 09/15/21 10:25 ITCHYNESS, itchy HIVES <Edwina Barlowdee Pérez [employer] [employer] [facility] - Last Filed: 11/30/22 13:38> Review of Systems Constitutional: Constitutional: Reports no additional constitutional complaints, Denies chills, Denies fever(s) and Denies night sweats <SHAN Mccoy - Last Filed: 12/01/22 13:27> Eyes: Eyes: Reports no additional eye complaints, Denies blurry vision, Denies change in vision, Denies diplopia, Denies eye discharge, Denies loss of vision and Denies eye pain <SHAN Mccoy - Last Filed: 12/01/22 13:27> ENT: Reports dizziness <SHAN Mccoy - Last Filed: 12/01/22 13:27> Cardiovascular: Cardiovascular: Reports no additional cardiovascular complaint s, Denies chest pain, Denies lightheadedness, Denies Loss of Consciousness and Denies dyspnea <SHAN Mccoy - Last Filed: 12/01/22 13:27> Respiratory: Respiratory: Reports no additional respiratory complaints and Denies dyspnea <SHAN Mccoy - Last Filed: 12/01/22 13:27> Gastrointestinal: Gastrointestinal: Reports no additional gastrointestinal complaints, Denies abdominal pain, Denies melena, Denies hematochezia, Denies change in bowel habits and Denies change in stool character <SHAN Mccoy - Last Filed: 12/01/22 13:27> Genitourinary: Genitourinary: Reports no additional male genitourinary complaints, Denies hematuria, Denies oliguria, Denies difficulty urinating, Denies dysuria, Denies urinary frequency, Denies urinary hesitancy, Denies urinary incontinence and Denies urinary urgency <SHAN Mccoy - Last Filed: 12/01/22 13:27> Musculoskeletal: Musculoskeletal: Reports no additional musculoskeletal complaints, Denies numbness and Denies tingling <SHAN Mccoy - Last Filed: 12/01/22 13:27> Neurologic: Reports dizziness, Denies loss of vision, Denies numbness and Denies tingling <SHAN Mccoy - Last Filed: 12/01/22 13:27> Psychiatric: Psychiatric: Reports no additional psychiatric complaints <SHAN Mccoy - Last Filed: 12/01/22 13:27> Endocrine: Endocrine: Reports no additional endocrine complaints <SHAN Mccoy - Last Filed: 12/01/22 13:27> Hematologic/Lymphatic: Hematologic/Lymphatic: Reports no additional hematologic/lymphatic complaints <SHAN Mccoy - Last Filed: 12/01/22 13:27> Allergic/Immunologic: Allergic/Immunologic: Reports no additional allergic/immunologic complaints <SHAN Mccoy - Last Filed: 12/01/22 13:27> [facility] Past Medical History Attestation statement: The following information was validated with the patient. (all information validated with the patient's daughter) <SHAN Mccoy - Last Filed: 12/01/22 13:27> Source: old records reviewed, obtained from family (patient's daughter) and nursing notes reviewed <SHAN Mccoy - Last Filed: 12/01/22 13:27> Medical History: Medical History Anemia CHF (congestive heart failure) Diabetes GIB (gastrointestinal bleeding) Hernia Peritoneal dialysis catheter in place Renal failure Scalp cyst <Edwina Pérez CNP - Last Filed: 11/30/22 13:38> Surgical History: Surgical History H/O esophagogastroduodenoscopy History of excision of mass S/P femoral-popliteal bypass surgery <Edwina Pérez CNP - Last Filed: 11/30/22 13:38> Family History Family History: Family History Mother Diabetes Father Diabetes <Edwina Pérez CNP - Last Filed: 11/30/22 13:38> Social History Social History: Social History Household Members: None Alcohol intake: current Alcohol intake frequency: does not drink Smoked in Last 30 Days: No Advance Directives: No Advance Directives Information Provided: No <Edwina Ruiz VELIA Pérez - Last Filed: 11/30/22 13:38> Physical Exam Vital Signs: Vital Signs: Last Vital Signs Temp 97.6 F 11/30/22 16:31 Pulse 78 11/30/22 18:15 Resp 12 11/30/22 18:15 BP 139/59 L 11/30/22 18:15 Pulse Ox 99 11/30/22 18:15 O2 Del Method 11/30/22 18:15 BMI result Body Mass Index 27.1 <Edwina EagleVELIA stoner - Last Filed: 11/30/22 13:38> Vital Signs: Last Vital Signs Temp 97.6 F 11/30/22 16:31 Pulse 78 11/30/22 18:15 Resp 12 11/30/22 18:15 BP 139/59 L 11/30/22 18:15 Pulse Ox 99 11/30/22 18:15 O2 Del Method 11/30/22 18:15 BMI result Body Mass Index 27.1 <SHAN Mccoy - Last Filed: 12/01/22 13:27> Const: General: cooperative, no acute distress, alert and awake <SHAN Mccoy - Last Filed: 12/01/22 13:27> Nutritional Appearance: well nourished <SHAN Mccoy - Last Filed: 12/01/22 13:27> Orientation/consciousness: patient oriented x3 <SHAN Mccoy - Last Filed: 12/01/22 13:27> Limitations: no limitations <SHAN Mccoy - Last Filed: 12/01/22 13:27> HEENT: Head: Yes normal to inspection and Yes atraumatic <SHAN Mccoy - Last Filed: 12/01/22 13:27> Ears: hearing grossly normal bilaterally and external ears normal <SHAN Mccoy - Last Filed: 12/01/22 13:27> General nose exam: Normal external nose present, no nasal discharge noted and no epistaxis <SHAN Mccoy - Last Filed: 12/01/22 13:27> Face and sinus: Yes normal facial exam, No abrasion and No laceration <Wendie Rankin PA - Last Filed: 12/01/22 13:27> Mouth: Normal oral and palatal mucosa present, no drooling and no muffled voice <Wendie Rankin PA - Last Filed: 12/01/22 13:27> Eyes: General: appearance normal, both eyes and all related structures <Wendie Rankin PA - Last Filed: 12/01/22 13:27> Periorbital: periorbital findings normal <Wendie Rankin PA - Last Filed: 12/01/22 13:27> Eyelids: Yes eyelids normal <Wendie Rankin PA - Last Filed: 12/01/22 13:27> Conjunctivae: conjunctivae normal <Wendie Rankin PA - Last Filed: 12/01/22 13:27> Pupils: Equal, round and reactive pupils present <Wendie Rankin PA - Last Filed: 12/01/22 13:27> EOM: EOMs intact bilaterally <Wendie Rankin DE - Last Filed: 12/01/22 13:27> Neck: Neck: Yes normal visual inspection, Yes full ROM and Yes no lymphadenopathy <Wendie Rankin PA - Last Filed: 12/01/22 13:27> Chest: Chest palpation & inspection: normal inspection of the chest <Wendie Rankin PA - Last Filed: 12/01/22 13:27> Resp: Effort & Inspection: normal respiratory effort and able to speak in complete sentences <Wendie Rankin PA - Last Filed: 12/01/22 13:27> GI: Palpation (GI): Soft to palpation, not firm, nontender and no guarding <Wendie Rankin PA - Last Filed: 12/01/22 13:27> Neuro: General: patient oriented x3 and moves all extremities <Wendie Rankin PA - Last Filed: 12/01/22 13:27> Cranial nerves: Yes Equal, round and reactive pupils present <Wendie Rankin PA - Last Filed: 12/01/22 13:27> Cognition (Neuro): normal cognition <Wendie Rankin PA - Last Filed: 12/01/22 13:27> Motor exam (neuro): 5/5 motor strength present throughout <SHAN Mccoy - Last Filed: 12/01/22 13:27> Sensory Exam: Normal double simultaneous stimulation for sensation <Wendiejimmie OsheaSHAN cadet - Last Filed: 12/01/22 13:27> Coordination: [id number] test normal <Wendiejimmie OsheaSHAN cadet - Last Filed: 12/01/22 13:27> Extrem: General: Yes normal to inspection, Yes full ROM and Yes capillary refill normal <Wendie RankinSHAN cadet - Last Filed: 12/01/22 13:27> Psych: Appearance: grossly normal <Wendie RankinSHAN cadet - Last Filed: 12/01/22 13:27> Mental Status: mental status grossly normal <SHAN Mccoy - Last Filed: 12/01/22 13:27> Affect: normal affect <Wendie RankinSHAN cadet - Last Filed: 12/01/22 13:27> Attitude: cooperative <SHAN Mccoy - Last Filed: 12/01/22 13:27> Thought process: Normal thought process present <SHAN Mccoy - Last Filed: 12/01/22 13:27> Thought content: Normal thought content present <SHAN Mccoy - Last Filed: 12/01/22 13:27> Insight: Good insight present (Psych) <SHAN Mccoy - Last Filed: 12/01/22 13:27> Course Course Course Narrative: This is an RME: Additional HPI, ROS, PE not included below will be deferred to primary provider. Patient is a 77-year-old male [place] speaking hx of ESRD on peritoneal dialysis, peripheral artery disease, history of fem-pop bypass on eliquis, history of GI bleed, anemia, CHF, DM who presents to the emergency department for evaluation of dizziness and nausea, decreased appetitie. At baseline daughter reports normal ambulatory without complication, however currently his legs feel weak, decreased strength. Symptoms x 2 days after bought of diarrhea, that was dark colored . No recent ABX usage. Denies any abdominal pain. Plan: labs, EKG, viral testing, occult stool <Edwina Pérez [employer] - Last Filed: 11/30/22 13:38> Medications Administered Discontinued Medications Generic Name Dose Route Start Last Admin Trade Name Freq PRN Reason Stop Dose Admin Pantoprazole Sodium 40 mg 11/30/22 15:49 11/30/22 16:20 Pantoprazole Sodium 40 Mg/10 Ml Vial IVPUSH 11/30/22 15:50 40 mg ONCE ONE Administration <Edwina Pérez CNP - Last Filed: 11/30/22 13:38> Medications Administered Discontinued Medications Generic Name Dose Route Start Last Admin Trade Name Estefania PRN Reason Stop Dose Admin Pantoprazole Sodium 40 mg 11/30/22 15:49 11/30/22 16:20 Pantoprazole Sodium 40 Mg/10 Ml Vial IVPUSH 11/30/22 15:50 40 mg ONCE ONE Administration <SHAN Mccoy - Last Filed: 12/01/22 13:27> Medical Decision Making Medical Decision Making [facility] Narrative: Patient is a 77 year old assigned male at with a history of GI bleeding, eliquis use, and kidney failure presenting to the emergency department today with dizziness and lightheadedness. Patient's physical exam was unremarkable. Patient's blood work showed a hgb of 6.6 and a chronic elevated CR of 8.09. Patient's urine showed no acute process. Patient's EKG was unremarkable. I explained my physical exam findings as well as all test results to the patient and the patient's daughter. I answered all questions asked by the patient and the patient's daughter. Patient received a blood transfusion. I was informed that [facility] unable [place] so the patient would need to be transferred. I spoke to Dr. Joe at [facility] who accepted the patient to their ED. Patient and the patient's daughter verbalized agreement and understanding with this treatment plan and transfer. 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 Joe at [facility] who accepted the patient for transfer) <SHAN Mccoy - Last Filed: 12/01/22 13:27> Lab Data [facility] Lab Attestation statement: I reviewed the patient's lab results. <SHAN Mccoy - Last Filed: 12/01/22 13:27> Result Diagrams: 11/30/22 13:50 11/30/22 13:50 <Edwina Pérez CNP - Last Filed: 11/30/22 13:38> Labs: Lab Results 11/30/22 11/30/22 11/30/22 Range/Units 13:50 13:50 13:51 WBC 7.9 (4.8-10.8) X10*3/uL RBC 2.11 L (4.60-5.80) X10*6/uL Hgb 6.6 L* (14.0-18.0) g/dl Hct 19.9 L* (42.0-52.0) % MCV 94.3 (80.0-98.0) fL MCH 31.3 (27.0-33.0) pg MCHC 33.2 (31.0-36.0) g/dl RDW 15.1 (11.0-16.0) % Plt Count 154 L (160-400) X10*3/uL MPV 11.1 (9.4-12.4) fL Immature Gran % (Auto) 0.3 (0.0-0.4) % Neut % (Auto) 72.7 (45-73) % Lymph % (Auto) 14.4 L (20-40) % [place] % (Auto) 9.9 (2-11) % Eos % (Auto) 2.3 (0-4) % Baso % (Auto) 0.4 (0-2) % Lymph # (Auto) 1.1 L (1.2-4.9) X10*3/uL [place] # (Auto) 0.8 (0.1-1.2) X10*3/uL Eos # (Auto) 0.2 (0.0-0.4) X10*3/uL Baso # (Auto) 0.0 (0.0-0.2) X10*3/uL Abs Immat Gran (auto) 0.02 (0.00-0.03) X10*3/uL Absolute Neuts (auto) 5.7 (2.0-8.3) x10*3/uL Absolute Nucleated RBC 0.000 (0.0-0.012) X10*3/uL Nucleated RBC % (auto) 0.0 (0.0-0.2) /100WBC Sodium 130 L (135-145) mmol/L Potassium 3.6 (3.3-5.1) mmol/L Chloride 94 L (96-108) mmol/L Carbon Dioxide 25 (22-29) mmol/L Anion Gap 15 (12-20) BUN 136 H (9-16) mg/dL Creatinine 8.09 H* (0.5-1.4) mg/dL Estim Creat Clear Calc 6.1 Estimated GFR 6 Random Glucose 183 H (60-115) mg/dL Calcium 9.1 D (8.4-10.2) mg/dL Magnesium 2.0 (1.6-2.6) mg/dL Total Bilirubin 0.9 (0.0-1.0) mg/dL AST 39 H (5-37) U/L ALT 56 H (0-40) U/L Alkaline Phosphatase 163 H (39-117) U/L Total Protein 5.4 L (6.5-8.0) g/dL Albumin 2.9 L (3.5-5.0) g/dL Lipase 61 (8-78) U/L COVID-19 (CHAYO) (Negative) COVID-19 Clin Com Influenza Type A (WILLIAM) Negative (Negative) Influenza Type B (WILLIAM) Negative (Negative) Influenza A & B Note See Note Blood Type Antibody Screen Crossmatch 11/30/22 11/30/22 Range/Units 13:51 14:39 WBC (4.8-10.8) X10*3/uL RBC (4.60-5.80) X10*6/uL Hgb (14.0-18.0) g/dl Hct (42.0-52.0) % MCV (80.0-98.0) fL MCH (27.0-33.0) pg MCHC (31.0-36.0) g/dl RDW (11.0-16.0) % Plt Count (160-400) X10*3/uL MPV (9.4-12.4) fL Immature Gran % (Auto) (0.0-0.4) % Neut % (Auto) (45-73) % Lymph % (Auto) (20-40) % [place] % (Auto) (2-11) % Eos % (Auto) (0-4) % Baso % (Auto) (0-2) % Lymph # (Auto) (1.2-4.9) X10*3/uL [place] # (Auto) (0.1-1.2) X10*3/uL Eos # (Auto) (0.0-0.4) X10*3/uL Baso # (Auto) (0.0-0.2) X10*3/uL Abs Immat Gran (auto) (0.00-0.03) X10*3/uL Absolute Neuts (auto) (2.0-8.3) x10*3/uL Absolute Nucleated RBC (0.0-0.012) X10*3/uL Nucleated RBC % (auto) (0.0-0.2) /100WBC Sodium (135-145) mmol/L Potassium (3.3-5.1) mmol/L Chloride (96-108) mmol/L Carbon Dioxide (22-29) mmol/L Anion Gap (12-20) BUN (9-16) mg/dL Creatinine (0.5-1.4) mg/dL Estim Creat Clear Calc Estimated GFR Random Glucose (60-115) mg/dL Calcium (8.4-10.2) mg/dL Magnesium (1.6-2.6) mg/dL Total Bilirubin (0.0-1.0) mg/dL AST (5-37) U/L ALT (0-40) U/L Alkaline Phosphatase (39-117) U/L Total Protein (6.5-8.0) g/dL Albumin (3.5-5.0) g/dL Lipase (8-78) U/L COVID-19 (CHAYO) Negative (Negative) COVID-19 Clin Com See Note Influenza Type A (WILLIAM) (Negative) Influenza Type B (WILLIAM) (Negative) Influenza A & B Note Blood Type AB Positive Antibody Screen NEGATIVE Crossmatch See Detail <Edwina Pérez, VELIA - Last Filed: 11/30/22 13:38> Lab Results 02/23/23 02/23/23 02/23/23 Range/Units 13:50 13:50 13:51 WBC 7.9 (4.8-10.8) X10*3/uL RBC 2.11 L (4.60-5.80) X10*6/uL Hgb 6.6 L* (14.0-18.0) g/dl Hct 19.9 L* (42.0-52.0) % MCV 94.3 (80.0-98.0) fL MCH 31.3 (27.0-33.0) pg MCHC 33.2 (31.0-36.0) g/dl RDW 15.1 (11.0-16.0) % Plt Count 154 L (160-400) X10*3/uL MPV 11.1 (9.4-12.4) fL Immature Gran % (Auto) 0.3 (0.0-0.4) % Neut % (Auto) 72.7 (45-73) % Lymph % (Auto) 14.4 L (20-40) % [place] % (Auto) 9.9 (2-11) % Eos % (Auto) 2.3 (0-4) % Baso % (Auto) 0.4 (0-2) % Lymph # (Auto) 1.1 L (1.2-4.9) X10*3/uL [place] # (Auto) 0.8 (0.1-1.2) X10*3/uL Eos # (Auto) 0.2 (0.0-0.4) X10*3/uL Baso # (Auto) 0.0 (0.0-0.2) X10*3/uL Abs Immat Gran (auto) 0.02 (0.00-0.03) X10*3/uL Absolute Neuts (auto) 5.7 (2.0-8.3) x10*3/uL Absolute Nucleated RBC 0.000 (0.0-0.012) X10*3/uL Nucleated RBC % (auto) 0.0 (0.0-0.2) /100WBC Sodium 130 L (135-145) mmol/L Potassium 3.6 (3.3-5.1) mmol/L Chloride 94 L (96-108) mmol/L Carbon Dioxide 25 (22-29) mmol/L Anion Gap 15 (12-20) BUN 136 H (9-16) mg/dL Creatinine 8.09 H* (0.5-1.4) mg/dL Estim Creat Clear Calc 6.1 Estimated GFR 6 Random Glucose 183 H (60-115) mg/dL Calcium 9.1 D (8.4-10.2) mg/dL Magnesium 2.0 (1.6-2.6) mg/dL Total Bilirubin 0.9 (0.0-1.0) mg/dL AST 39 H (5-37) U/L ALT 56 H (0-40) U/L Alkaline Phosphatase 163 H (39-117) U/L Total Protein 5.4 L (6.5-8.0) g/dL Albumin 2.9 L (3.5-5.0) g/dL Lipase 61 (8-78) U/L COVID-19 (CHAYO) (Negative) COVID-19 Clin Com Influenza Type A (WILLIAM) Negative (Negative) Influenza Type B (WILLIAM) Negative (Negative) Influenza A & B Note See Note Blood Type Antibody Screen Crossmatch 11/30/22 11/30/22 Range/Units 13:51 14:39 WBC (4.8-10.8) X10*3/uL RBC (4.60-5.80) X10*6/uL Hgb (14.0-18.0) g/dl Hct (42.0-52.0) % MCV (80.0-98.0) fL MCH (27.0-33.0) pg MCHC (31.0-36.0) g/dl RDW (11.0-16.0) % Plt Count (160-400) X10*3/uL MPV (9.4-12.4) fL Immature Gran % (Auto) (0.0-0.4) % Neut % (Auto) (45-73) % Lymph % (Auto) (20-40) % [place] % (Auto) (2-11) % Eos % (Auto) (0-4) % Baso % (Auto) (0-2) % Lymph # (Auto) (1.2-4.9) X10*3/uL [place] # (Auto) (0.1-1.2) X10*3/uL Eos # (Auto) (0.0-0.4) X10*3/uL Baso # (Auto) (0.0-0.2) X10*3/uL Abs Immat Gran (auto) (0.00-0.03) X10*3/uL Absolute Neuts (auto) (2.0-8.3) x10*3/uL Absolute Nucleated RBC (0.0-0.012) X10*3/uL Nucleated RBC % (auto) (0.0-0.2) /100WBC Sodium (135-145) mmol/L Potassium (3.3-5.1) mmol/L Chloride (96-108) mmol/L Carbon Dioxide (22-29) mmol/L Anion Gap (12-20) BUN (9-16) mg/dL Creatinine (0.5-1.4) mg/dL Estim Creat Clear Calc Estimated GFR Random Glucose (60-115) mg/dL Calcium (8.4-10.2) mg/dL Magnesium (1.6-2.6) mg/dL Total Bilirubin (0.0-1.0) mg/dL AST (5-37) U/L ALT (0-40) U/L Alkaline Phosphatase (39-117) U/L Total Protein (6.5-8.0) g/dL Albumin (3.5-5.0) g/dL Lipase (8-78) U/L COVID-19 ([facility]AYO) Negative (Negative) COVID-19 Clin Com See Note Influenza Type A (WILLIAM) (Negative) Influenza Type B (WILLIAM) (Negative) Influenza A & B Note Blood Type AB Positive Antibody Screen NEGATIVE Crossmatch See Detail <SHAN Mccoy - Last Filed: 12/01/22 13:27> Independent Interpretation I performed an independent interpretation of an: EKG <SHAN Mccoy - Last Filed: 12/01/22 13:27> Interpretation: Vent. Rate: 074 BPM ? ? Atrial Rate: 000 BPM P-R Int: 000 ms? QRS Dur: 154 ms QT Int: 448 ms ? ? ? P-R-T Axes: 000 -42 165 degrees QTc Int: 497 ms ? Atrial fibrillation with a competing junctional pacemaker Left axis deviation Left bundle branch block Abnormal ECG When compared with ECG of 09-DEC-2020 14:24, Left bundle branch block is now Present DD/ 1305 <SHAN Mccoy - Last Filed: 12/01/22 13:27> Independent Historian Clinical information obtained from an independent historian. History obtained fr om or confirmed by: Other (patient's daughter) <SHAN Mccoy - Last Filed: 12/01/22 13:27> Critical Care Time Critical Care Time Critical Care Time: Yes <SHAN Mccoy - Last Filed: 12/01/22 13:27> Total Critical Care Time: 45 <SHAN Mccoy - Last Filed: 12/01/22 13:27> Attestation: I spent 45 minutes of Critical Care Time with this patient. This does not include time spent on separately reported billable procedures. <SHAN Mccoy - Last Filed: 12/01/22 13:27> Discharge Plan Discharge Clinical Impression: Current use of anticoagulant therapy, Acute GI bleeding, Renal failure, Anemia <Edwina Pérez CNP - Last Filed: 11/30/22 13:38> Patient Disposition: [facility] <Edwina Pérez CNP - Last Filed: 11/30/22 13:38> Transfer Details: transferred to [facility] due to lack of peritoneal dialysis here <Edwina Pérez CNP - Last Filed: 11/30/22 13:38> transferred to [facility] due to lack of peritoneal dialysis here <SHAN Mccoy - Last Filed: 12/01/22 13:27> Prescriptions: No Action colesevelam 3.75 gram powder in packet 3.75 g PO DAILY 90 Days Qty: 90 0RF ketorolac 0.5 % Drops 1 drp OPHTHALMIC (EYE) TID prednisolone acetate 1 % Drops,Suspension 1 drp ophthalmic-Left QID Dialyvite 800 800 mcg Tablet,Chewable 1 tab PO DAILY warfarin 3 mg tablet 3 mg PO TUFR@1800 Protocol: Dose Management Condition: Sunday (Week One) Dose/Route: 4.5 mg Instruction: 1.5 x 3 mg tablets Condition: Sunday Dose/Route: 4.5 mg Instruction: 1.5 x 3 mg tablets Condition: Sunday Dose/Route: 3 mg Instruction: 1 x 3 mg tablet Condition: Sunday Dose/Route: 4.5 mg Instruction: 1.5 x 3 mg tablets Condition: Dose/Route: 4.5 mg Instruction: 1.5 x 3 mg tablets Condition: Sunday Dose/Route: 3 mg Instruction: 1 x 3 mg tablet Condition: Sunday Dose/Route: 4.5 mg Instruction: 1.5 x 3 mg tablets Condition: Sunday (Week Two) Dose/Route: 4.5 mg Instruction: 1.5 x 3 mg tablets Condition: Sunday Dose/Route: 4.5 mg Instruction: 1.5 x 3 mg tablets Condition: Sunday Dose/Route: 3 mg Instruction: 1 x 3 mg tablet Condition: Sunday Dose/Route: 4.5 mg Instruction: 1.5 x 3 mg tablets Condition: Dose/Route: 4.5 mg Instruction: 1.5 x 3 mg tablets Condition: Sunday Dose/Route: 3 mg Instruction: 1 x 3 mg tablet Condition: Sunday Dose/Route: 4.5 mg Instruction: 1.5 x 3 mg tablets Protocol Text: Adjustment Start Date: Sunday11/26/20 INR Value: 2.8 INR Date: 11/26/20 Recheck Date: 12/17/20 cephalexin 500 mg capsule 500 mg PO BID 7 Days Qty: 14 0RF Baqsimi 3 mg/actuation spray,non-aerosol 3 mg intranasal DAILY PRN (Reason: Hypoglycemia) melatonin 1 mg tablet 1 mg PO BEDTIME levothyroxine 75 mcg tablet 75 mcg PO DAILY ergocalciferol (vitamin D2) 1,250 mcg (50,000 unit) capsule 1,250 mcg PO YOUNG@1000 hydralazine 50 mg tablet 50 mg PO BID magnesium oxide 400 mg (241.3 mg magnesium) tablet 400 mg PO TID (DME) pen needle, diabetic 32 gauge x 5/32 needle See Rx Instructions subcut .MEDSUPPLY Qty: 50 Rx Instructions: As directed Lantus Solostar U-100 Insulin 100 unit/mL (3 mL) insulin pen 13 unit subcut DAILY insulin aspart U-100 100 unit/mL (3 mL) insulin pen 4 - 6 unit subcut DAILY Rx Instructions: 4 TO 6 UNITS BEFORE LARGEST MEAL OF DAY fluticasone propionate 50 mcg/actuation spray,suspension 1 spray intranasal DAILY PRN (Reason: Allergy Symptoms) losartan 100 mg tablet 100 mg PO DAILY carvedilol 3.125 mg tablet 3.125 mg PO BID docusate sodium 100 mg capsule 100 mg PO BID PRN (Reason: Constipation) omeprazole 20 mg capsule,delayed release(DR/EC) 20 mg PO DAILY (DME) FreeStyle Lite Strips Strip See Rx Instructions Not Applicable .MEDSUPPLY Qty: 10 Rx Instructions: As directed potassium chloride 10 mEq capsule, extended release 10 meq PO DAILY atorvastatin 40 mg tablet 40 mg PO BEDTIME Dialyvite 800 0.8 mg tablet 1 tab PO DAILY ketoconazole 2 % shampoo 1 appl topical 2XW PRN (Reason: Itching) Mircera 30 mcg/0.3 mL syringe 30 mcg subcut Q2W pantoprazole 40 mg tablet,delayed release (DR/EC) 40 mg PO DAILY Eliquis 2.5 mg tablet 2.5 mg PO BID bisacodyl [Dulcolax (bisacodyl)] 5 mg tablet,delayed release (DR/EC) 10 mg PO ONCE 1 Days Qty: 2 0RF Rx Instructions: Take 2 tablets at 12:00pm the day before your procedure, bowel prep polyethylene glycol 3350 [Miralax] 17 gram/dose powder 238 g PO ONCE 1 Days Qty: 238 0RF Rx Instructions: Take as directed by mouth, bowel prep <Edwina Pérez CNP - Last Filed: 11/30/22 13:38> Interventions: Acute Care Transfer Worksheet (ED) Last Done: 12/01/22 05:56 <Edwina Pérez CNP - Last Filed: 11/30/22 13:38> Discharge Date/Time: 11/30/22 19:00 <Edwina Pérez CNP - Last Filed: 11/30/22 13:38>
[2022-11-30 13:26] VITALS: BP 133/65; PULSE 73; RESP 18; TEMP 36.6; O2SAT 100; BMI 27.1
[2022-11-30 13:59] LABS: MANUAL DIFF FLAG NO
[2022-11-30 14:01] LABS: Basophils Percent Auto 0.4 % (0-2); Eosinophils Absolute Auto 0.2 X10*3/uL (0.0-0.4); Eosinophils Percent Auto 2.3 % (0-4); Imm Gran Abs Auto 0.02 X10*3/uL (0.00-0.03); Imm Gran Pct Auto 0.3 % (0.0-0.4); Lymphocytes Absolute Auto 1.1 X10*3/uL (1.2-4.9); Lymphocytes Percent Auto 14.4 % (20-40); Mean Corpuscular HGB Conc 33.2 g/dl (31.0-36.0); Mean Corpuscular Hemoglobin 31.3 pg (27.0-33.0); Mean Corpuscular Volume 94.3 fL (80.0-98.0); Mean Platelet Volume 11.1 fL (9.4-12.4); Monocytes Absolute Auto 0.8 X10*3/uL (0.1-1.2); Monocytes Percent Auto 9.9 % (2-11); Neutrophils Absolute Auto 5.7 x10*3/uL (2.0-8.3); Neutrophils Percent Auto 72.7 % (45-73); Platelet Count 154 X10*3/uL (160-400); Red Blood Count 2.11 X10*6/uL (4.60-5.80); Red Cell Distribution Width 15.1 % (11.0-16.0); White Blood Count 7.9 X10*3/uL (4.8-10.8)
[2022-11-30 14:05] LABS: Hematocrit 19.9 % (42.0-52.0); Hemoglobin 6.6 g/dl (14.0-18.0)
[2022-11-30 14:24] LABS: COVID-19 Test Negative (Negative); IDNOW Serial# 16C4AD1C
[2022-11-30 14:25] LABS: IDNOW Serial# BCCEAD1C; Influenza A Negative (Negative); Influenza B2 Negative (Negative)
[2022-11-30 14:28] LABS: Alanine Aminotransferase 56 U/L (0-40); Albumin Level 2.9 g/dL (3.5-5.0); Alkaline Phosphatase 163 U/L (39-117); Anion Gap 15 (12-20); Aspartate Amino Transferase 39 U/L (5-37); Bilirubin Total 0.9 mg/dL (0.0-1.0); Blood Urea Nitrogen 136 mg/dL (9-16); Calcium 9.1 mg/dL (8.4-10.2); Carbon Dioxide 25 mmol/L (22-29); Chloride 94 mmol/L (96-108); Creatinine Clr Calc Pharmacy 6.1; Estimated Glomerular Filt Rate 6; Glucose Random 183 mg/dL (60-115); Lipase 61 U/L (8-78); Potassium 3.6 mmol/L (3.3-5.1); Sodium 130 mmol/L (135-145); Total Protein 5.4 g/dL (6.5-8.0)
--- NOTE | 2022-11-30 15:53 | MHC.EDTECH ---
provider approached about transferring pt to [facility]. [facility] has been contacted and has declined.
[2022-11-30 16:14] VITALS: BP 122/35; PULSE 76; RESP 16; TEMP 36.4
[2022-11-30 16:19] VITALS: BP 122/35; PULSE 77; RESP 16; TEMP 36.4; O2SAT 98
[2022-11-30] MEDS: Pantoprazole Sodium 40 MG/10 ML VIAL IVPUSH (16:20)
[2022-11-30 16:31] VITALS: BP 135/40; PULSE 75; RESP 16; TEMP 36.4
--- NOTE | 2022-11-30 17:12 | MHC.EDTECH ---
pt was declined from [facility], [facility], and [facility]. Provider spoke with [facility] about transfering pt to [facility]. pt was accepted to [facility] ed to ed transfer accepting provider is Dr tellez. Will book transport upon iv blood transfusion completion per providers request.
[2022-11-30 18:15] VITALS: BP 139/59; PULSE 78; RESP 12; O2SAT 99
--- NOTE | 2022-11-30 20:00 | PC.NURSE ---
Gave nurse to nurse report to Nurys r/aftab bah in route for peritoneal dialysis.
--- NOTE | 2022-11-30 20:01 | PC.NURSE ---
see previous note [facility] Ed.
== END 2022-11-30 19:00 | disposition short-term general hospital (02) ==
PROVIDERS: Nurse Practitioner Family; Emergency Provider Emergency Medicine; PCP Family Medicine
DX: K92.2 Gastrointestinal hemorrhage, unspecified (principal); E11.22 Type 2 diabetes mellitus with diabetic chronic kidney disease; I13.2 Hypertensive heart and chronic kidney disease with heart failure and with stage 5 chronic kidney disease, or end stage renal disease; N18.6 End stage renal disease; I50.9 Heart failure, unspecified; N17.9 Acute kidney failure, unspecified; Z99.2 Dependence on renal dialysis; D64.9 Anemia, unspecified; R42 Dizziness and giddiness; Z20.822 Contact with and (suspected) exposure to COVID-19; Z79.01 Long term (current) use of anticoagulants; Z79.02 Long term (current) use of antithrombotics/antiplatelets; Z79.4 Long term (current) use of insulin
CPT/HCPCS: 36430; 80053; 83690; 83735; 85025; 86850; 86900; 86901; 86923; 87502; 87635; 93005; 99285; P9016

== ENCOUNTER 2023-03-09 10:45 | Emergency (ER) | payer MEDICARE, SELFPAY ==
--- NOTE | ~2023-03-09 | XR_ITS ---
EXAMINATION: XR FOOT, LEFT CLINICAL INFORMATION: Swelling and redness COMPARISON: None available. TECHNIQUE: AP, lateral, and oblique views of the left foot. FINDINGS: There is osteopenia visualized bones. Prominent vascular calcifications are present. There is some soft tissue swelling seen about the first distal phalanx. No acute fracture or dislocation is evident. There is question of an old healed fracture base of the fifth metatarsal. Joint spaces are generally maintained. There is a plantar calcaneal spur present. No significant erosive lesion is appreciated. No gas within the soft tissues appreciated.. XR/XR foot LT min 3V IMPRESSION: Diffuse osteopenia. No acute fracture or dislocation and no definite erosive changes appreciated. Prominent vascular calcification.
[2023-03-09 10:48] VITALS: BP 116/21; PULSE 88; RESP 14; TEMP 36.8; O2SAT 96; BMI 26.4
--- NOTE | 2023-03-09 12:39 | ED.LOWEXIN ---
HPI - Extremity Injury (Lower) General Chief Complaint: Extremity Injury, Lower Stated Complaint: injured toe Time Seen by Provider: 03/09/23 11:02 History of Present Illness HPI Narrative: Patient complains of left big toe injury, the nail was lifted up it is bleeding and the toe hurts a little bit he thinks he stubbed it on something, no other injury he did not fall he did not feel dizzy no other complaint Related Data Home Medications Medication Instructions Recorded Confirmed atorvastatin 40 mg tablet 40 mg PO BEDTIME 09/24/20 04/01/21 blood sugar diagnostic #10 ea 09/24/20 04/01/21 carvedilol 3.125 mg tablet 3.125 mg PO BID 09/24/20 04/01/21 docusate sodium 100 mg capsule 100 mg PO BID PRN Constipation 09/24/20 04/01/21 ergocalciferol (vitamin D2) 1,250 1,250 mcg PO YOUNG@1000 09/24/20 04/01/21 mcg (50,000 unit) capsule fluticasone propionate 50 1 spray intranasal DAILY PRN 09/24/20 04/01/21 mcg/actuation nasal Allergy Symptoms spray,suspension glucagon 3 mg/actuation nasal spray 3 mg intranasal DAILY PRN 09/24/20 04/01/21 Hypoglycemia hydralazine 50 mg tablet 50 mg PO BID 09/24/20 04/01/21 insulin aspart U-100 100 unit/mL 4 - 6 unit subcut DAILY 09/24/20 04/01/21 (3 mL) subcutaneous pen insulin glargine 100 unit/mL (3 13 unit subcut DAILY 09/24/20 04/01/21 mL) subcutaneous pen levothyroxine 75 mcg tablet 75 mcg PO DAILY 09/24/20 04/01/21 losartan 100 mg tablet 100 mg PO DAILY 09/24/20 04/01/21 magnesium oxide 400 mg (241.3 mg 400 mg PO TID 09/24/20 04/01/21 magnesium) tablet melatonin 1 mg tablet 1 mg PO BEDTIME 09/24/20 04/01/21 omeprazole 20 mg capsule,delayed 20 mg PO DAILY 09/24/20 04/01/21 release pen needle, diabetic 32 gauge x #50 ea 09/24/20 04/01/21/32 potassium chloride 10 mEq 10 meq PO DAILY 09/24/20 04/01/21 capsule,extended release ketoconazole 2 % shampoo 1 appl topical 2XW PRN Itching 10/05/20 04/01/21 vitamin B complex-vitamin C-folic 1 tab PO DAILY 10/05/20 04/01/21 acid 0.8 mg tablet ketorolac 0.5 % eye drops 1 drp ophthalmic (eye) TID 12/09/20 04/01/21 prednisolone acetate 1 % eye 1 drp ophthalmic-Left QID 12/09/20 04/01/21 drops,suspension vitamin B complex-vitamin C-folic 1 tab PO DAILY 12/09/20 04/01/21 acid 800 mcg chewable tablet (Dialyvite 800) warfarin 3 mg tablet 3 mg PO TUFR@1800 12/09/20 04/01/21 apixaban 2.5 mg tablet 2.5 mg PO BID 02/01/21 04/01/21 pantoprazole 40 mg tablet,delayed 40 mg PO DAILY 02/01/21 04/01/21 release epoetin beta, methoxy peg 30 30 mcg subcut Q2W 03/28/21 04/01/21 mcg/0.3 mL injection syringe (Mircera) amlodipine 10 mg tablet 5 mg PO DAILY 09/15/21 ferric citrate 210 mg iron tablet 210 mg PO DAILY 09/15/21 (Auryxia) Previous Rx's Medication Instructions Recorded bisacodyl 5 mg tablet,delayed 10 mg PO ONCE Bowel Preparation 1 03/02/21 release (Dulcolax (bisacodyl)) day #2 tabs polyethylene glycol 3350 17 238 g PO ONCE 1 day #238 grams 03/02/21 gram/dose oral powder (Miralax) colesevelam 3.75 gram oral powder 3.75 g PO DAILY 3 months #90 06/15/21 packet packets cephalexin 500 mg capsule 500 mg PO BID 7 days #14 caps 10/03/22 Allergies Allergy/AdvReac Type Severity Reaction Status Date / Time oxycodone [OXYCODONE] Allergy Intermediate RASH Verified 09/15/21 10:25 ITCHYNESS, itchy HIVES PMFSH Past Medical History Source: nursing notes reviewed Medical History Anemia CHF (congestive heart failure) Diabetes GIB (gastrointestinal bleeding) Hernia Peritoneal dialysis catheter in place Renal failure Scalp cyst Surgical History H/O esophagogastroduodenoscopy History of excision of mass S/P femoral-popliteal bypass surgery Family History Family History Mother Diabetes Father Diabetes Social History Social History Household Members: None Alcohol intake: current Alcohol intake frequency: does not drink Advance Directives: Yes Advance Directives Information Provided: Yes Advance Directives on File: No Physical Exam Vital Signs: Vital Signs: Last Vital Signs Temp 98.3 F 03/09/23 10:48 Pulse 88 03/09/23 10:48 Resp 14 03/09/23 10:48 BP 116/21 L 03/09/23 10:48 Pulse Ox 96 03/09/23 10:48 O2 Del Method Room Air 03/09/23 10:48 BMI result Body Mass Index 26.4 General appearance comfortable no distress Head normocephalic atraumatic Neck is supple Respiratory no distress Extremities full range of motion x4 The left big toe has some dried blood under the toenail which is partially avulsed at the distal and but is otherwise firmly attached There is no significant swelling, patient can bear weight Course Course Course Narrative: X-ray of the foot and big toe did not show any acute fracture I did not remove the nail as it is firmly in place except for the a small piece at the distal end Patient is ambulatory and was discharged Discharge Plan Discharge Clinical Impression: Nail avulsion of toe Additional Instructions: No broken bone seen on x-ray The nail was partially lifted with some bleeding but the nail is still in place so we will not remove it Keep a tape down with a Band-Aid so it does not catch on things Return any time any worse condition or any concerns Prescriptions: No Action colesevelam 3.75 gram powder in packet 3.75 g PO DAILY 90 Days Qty: 90 0RF ketorolac 0.5 % Drops 1 drp OPHTHALMIC (EYE) TID prednisolone acetate 1 % Drops,Suspension 1 drp ophthalmic-Left QID Dialyvite 800 800 mcg Tablet,Chewable 1 tab PO DAILY warfarin 3 mg tablet 3 mg PO TUFR@1800 Protocol: Dose Management Condition: Sunday (Week One) Dose/Route: 4.5 mg Instruction: 1.5 x 3 mg tablets Condition: Sunday Dose/Route: 4.5 mg Instruction: 1.5 x 3 mg tablets Condition: Sunday Dose/Route: 3 mg Instruction: 1 x 3 mg tablet Condition: Sunday Dose/Route: 4.5 mg Instruction: 1.5 x 3 mg tablets Condition: Dose/Route: 4.5 mg Instruction: 1.5 x 3 mg tablets Condition: Sunday Dose/Route: 3 mg Instruction: 1 x 3 mg tablet Condition: Sunday Dose/Route: 4.5 mg Instruction: 1.5 x 3 mg tablets Condition: Sunday (Week Two) Dose/Route: 4.5 mg Instruction: 1.5 x 3 mg tablets Condition: Sunday Dose/Route: 4.5 mg Instruction: 1.5 x 3 mg tablets Condition: Sunday Dose/Route: 3 mg Instruction: 1 x 3 mg tablet Condition: Sunday Dose/Route: 4.5 mg Instruction: 1.5 x 3 mg tablets Condition: Dose/Route: 4.5 mg Instruction: 1.5 x 3 mg tablets Condition: Sunday Dose/Route: 3 mg Instruction: 1 x 3 mg tablet Condition: Sunday Dose/Route: 4.5 mg Instruction: 1.5 x 3 mg tablets Protocol Text: Adjustment Start Date: Sunday11/26/20 INR Value: 2.8 INR Date: 11/26/20 Recheck Date: 12/17/20 cephalexin 500 mg capsule 500 mg PO BID 7 Days Qty: 14 0RF Baqsimi 3 mg/actuation spray,non-aerosol 3 mg intranasal DAILY PRN (Reason: Hypoglycemia) melatonin 1 mg tablet 1 mg PO BEDTIME levothyroxine 75 mcg tablet 75 mcg PO DAILY ergocalciferol (vitamin D2) 1,250 mcg (50,000 unit) capsule 1,250 mcg PO YOUNG@1000 hydralazine 50 mg tablet 50 mg PO BID magnesium oxide 400 mg (241.3 mg magnesium) tablet 400 mg PO TID (DME) pen needle, diabetic 32 gauge x 5/32 needle See Rx Instructions subcut .MEDSUPPLY Qty: 50 Rx Instructions: As directed Lantus Solostar U-100 Insulin 100 unit/mL (3 mL) insulin pen 13 unit subcut DAILY insulin aspart U-100 100 unit/mL (3 mL) insulin pen 4 - 6 unit subcut DAILY Rx Instructions: 4 TO 6 UNITS BEFORE LARGEST MEAL OF DAY fluticasone propionate 50 mcg/actuation spray,suspension 1 spray intranasal DAILY PRN (Reason: Allergy Symptoms) losartan 100 mg tablet 100 mg PO DAILY carvedilol 3.125 mg tablet 3.125 mg PO BID docusate sodium 100 mg capsule 100 mg PO BID PRN (Reason: Constipation) omeprazole 20 mg capsule,delayed release(DR/EC) 20 mg PO DAILY (DME) FreeStyle Lite Strips Strip See Rx Instructions Not Applicable .MEDSUPPLY Qty: 10 Rx Instructions: As directed potassium chloride 10 mEq capsule, extended release 10 meq PO DAILY atorvastatin 40 mg tablet 40 mg PO BEDTIME Dialyvite 800 0.8 mg tablet 1 tab PO DAILY ketoconazole 2 % shampoo 1 appl topical 2XW PRN (Reason: Itching) Mircera 30 mcg/0.3 mL syringe 30 mcg subcut Q2W pantoprazole 40 mg tablet,delayed release (DR/EC) 40 mg PO DAILY Eliquis 2.5 mg tablet 2.5 mg PO BID bisacodyl [Dulcolax (bisacodyl)] 5 mg tablet,delayed release (DR/EC) 10 mg PO ONCE 1 Days Qty: 2 0RF Rx Instructions: Take 2 tablets at 12:00pm the day before your procedure, bowel prep polyethylene glycol 3350 [Miralax] 17 gram/dose powder 238 g PO ONCE 1 Days Qty: 238 0RF Rx Instructions: Take as directed by mouth, bowel prep
--- NOTE | 2023-03-09 12:57 | PC.NURSE ---
PT WAS SEEN TO REVIEW RESULTS AND DISCHARGED BY PROVIDER
== END 2023-03-09 13:11 | disposition home or self-care (01) ==
PROVIDERS: Emergency Provider Emergency Medicine; PCP Family Medicine
DX: S91.202A Unspecified open wound of left great toe with damage to nail, initial encounter (principal); W22.8XXA Striking against or struck by other objects, initial encounter; Y93.9 Activity, unspecified; Y92.9 Unspecified place or not applicable; Y99.9 Unspecified external cause status
CPT/HCPCS: 73630; 99281; 99283

== ENCOUNTER 2023-03-21 14:11 | Outpatient (RCR) | payer MEDICARE, SELFPAY | END 2023-03-22 14:59 | disposition home or self-care (01) | LOC: HO.WCC 14:11 | PROVIDERS: PCP Family Medicine; Visit Provider Surgery | DX: E11.628 Type 2 diabetes mellitus with other skin complications (principal); I99.8 Other disorder of circulatory system; E11.40 Type 2 diabetes mellitus with diabetic neuropathy, unspecified; E11.22 Type 2 diabetes mellitus with diabetic chronic kidney disease; I12.0 Hypertensive chronic kidney disease with stage 5 chronic kidney disease or end stage renal disease; N18.6 End stage renal disease; Z89.421 Acquired absence of other right toe(s); Z95.1 Presence of aortocoronary bypass graft; Z87.891 Personal history of nicotine dependence | CPT/HCPCS: 99213 ==